=== PATIENT | female | born 1990 | race Caucasian/White ===

== ENCOUNTER 2017-06-27 22:48 | Emergency (ER) | payer MEDICAID ==
[~2017-06-27] VITALS: Ht 160 cm; Wt 111.0 kg
[2017-06-27 22:52] VITALS: BP 132/68; PULSE 92; RESP 12; TEMP 99.5; O2SAT 97
[2017-06-27] MEDS ORDERED: BACT800T5 PO (23:27)
[2017-06-27] MEDS ORDERED: CEPH-460 PO (23:27)
[2017-06-27] MEDS ORDERED: CEPHALEXIN MONOHYDRATE 500 MG CAP PO ONE (23:30)
[2017-06-27] MEDS ORDERED: SULFAMETHOXAZOLE-TRIMETHOPRIM DS 800-160 MG TAB PO ONE (23:30)
--- NOTE | 2017-06-27 23:47 | PD ---
HPI Chief Complaint: Skin Problem Time Seen by Provider: 22:15 Travel History International Travel<30 days: No Contact w/Intl Traveler<30days: No Traveled to known affect area: No History of Present Illness HPI 27-year-old female presents for evaluation of an area of tenderness and redness on the upper back. She first noticed it 4 days ago. She reports that he came to a "head" and she popped it but she has continues to have some redness and tenderness to the skin. Denies any fevers or chills. She has no other complaints at this time. PFSH Past Medical History Diminished Hearing: No ?: Not : 3 Para: 1 Miscarriage: 1 : 1 Dilation and Curettage (D&C): Yes (03/18/14) Social History Alcohol Use: No Tobacco Use: No Substance Use: No Allergies-Medications (Allergen,Severity, Reaction): Coded Allergies: No Known Allergies (Unverified , 06/27/17) Reported Meds & Prescriptions Reported Meds & Active Scripts Active Keflex (Cephalexin) 500 Mg Cap 500 Mg PO Q8H Bactrim DS (Sulfamethoxazole-Trimethoprim) 800-160 Mg Tab 1 Tab PO BID Review of Systems Except as stated in HPI: all other systems reviewed are Neg Physical Exam Narrative GENERAL: Well-developed well-nourished female in no acute distress SKIN: Warm and dry. There is a area of superficial cutaneous erythema on the posterior upper back. There appears to be in underlying sebaceous cyst however this is not fluctuant or pointing. HEAD: Atraumatic. Normocephalic. EYES: Pupils equal and round. No scleral icterus. No injection or drainage. ENT: No nasal bleeding or discharge. Mucous membranes pink and moist. NECK: Trachea midline. No JVD. CARDIOVASCULAR: Regular rate and rhythm. No murmur appreciated. RESPIRATORY: No accessory muscle use. Clear to auscultation. Breath sounds equal bilaterally. Data Data Last Documented VS Vital Signs Date Time Temp Pulse Resp B/P Pulse Ox O2 Delivery O2 Flow Rate FiO2 06/27/17 22:52 99.5 92 12 132/68 97 Room Air Orders Sulfamet-Trimeth Ds 800-160 Mg (Bactrim (06/27/17 23:30) Cephalexin (Keflex) (06/27/17 23:30) MDM Medical Decision Making Medical Screen Exam Complete: Yes Emergency Medical Condition: Yes Medical Record Reviewed: Yes Differential Diagnosis Cellulitis, abscess, infected cyst Narrative Course The patient appears to have some cellulitis to the upper back as well as an underlying cystic lesion however this is not fluctuant or pointing. At this point in time the plan will be to discharge the patient on Bactrim and Keflex. Recommended outpatient follow-up with a chair mechanic for definitive cyst removal. Stable for discharge. Diagnosis Primary Impression: Cellulitis Qualified Code: L03.312 - Cellulitis of back except buttock Additional Impression: Sebaceous cyst Referrals: Clinical Academic Allergist Additional Instructions: Medication as prescribed. Follow-up with a chair mechanic. Return for any emergent medical conditions. Med/Other Pt SpecificInfo: Prescription(s) given Scripts Cephalexin (Keflex)500 Mg Cur197 Mg PO Q8H #30 CAP Ref 0 Prov:Bipin Shaffer MD 06/27/17 Sulfamethoxazole-Trimethoprim (Bactrim DS)800-160 Mg Tab1 Tab PO BID #20 TAB Ref 0 Prov:Bipin Shaffer MD 06/27/17 Disposition: 01 DISCHARGE HOME Condition: Stable Laron Marie Jun 27, 2017 23:47
[2017-06-28] MEDS ORDERED: HYDR-3533 PO (15:32)
== END 2017-06-28 00:25 | disposition home or self-care (01) ==
LOC: NEPD 22:48
DX: L03.312 Cellulitis of back [any part except buttock and flank] (principal); L72.3 Sebaceous cyst
CPT/HCPCS: 99284

== ENCOUNTER 2017-06-28 13:22 | Emergency (ER) | payer MEDICAID ==
[~2017-06-28 13:22] MED LIST: BACT800T5 PO; CEPH-460 PO
[2017-06-28 13:23] VITALS: BP 145/83; PULSE 100; RESP 18; TEMP 98.2; O2SAT 99
--- NOTE | 2017-06-28 13:41 | PD ---
Physical Exam Date Seen by Provider: Jun 28, 2017 Time Seen by Provider: 13:38 Data Data Last Documented VS Vital Signs Date Time Temp Pulse Resp B/P Pulse Ox O2 Delivery O2 Flow Rate FiO2 06/28/17 13:23 98.2 100 18 145/83 99 MDM Supervised Visit with JES: No Narrative Course 27 YO F with complaint of pain on the left shoulder. Seen in the ED yesterday, diagnosed with abscess. Compliant with antibiotics. No treatment attempted at home. Vitals reviewed. Patient seen in triage, awaiting bed placement. Stephanie Keith Jun 28, 2017 13:41
[2017-06-28] MEDS ORDERED: oxyCODONE/ACETAMINOPHEN 5 MG/325 MG TAB PO ONE (14:30)
[2017-06-28] MEDS ORDERED: LIDOCAINE HCL 1% PF 30 ML VIAL SQ ONE (15:00)
[2017-06-28] MEDS ORDERED: HYDR-3533 PO (15:32)
--- NOTE | 2017-06-28 15:33 | PD ---
HPI Chief Complaint: Pain: Acute or Chronic Time Seen by Provider: 14:05 Travel History International Travel<30 days: No Contact w/Intl Traveler<30days: No Traveled to known affect area: No History of Present Illness HPI This is a 27-year-old female who presents to the emergency department with pain and swelling in her mid upper back, constant, severe. She says it started as a pustule and she popped it and she had some pus come out. She was seen in the emergency department yesterday and they didn't appreciate any fluctuant abscess to the started her on Bactrim and Keflex. She's been putting warm compresses on it but at this point it hurts her to move her shoulders, she has severe pain and she can't control it at home. She has had some chills. PFSH Past Medical History Diminished Hearing: No : 3 Para: 1 Miscarriage: 1 : 1 Dilation and Curettage (D&C): Yes (03/18/14) Social History Alcohol Use: No Tobacco Use: No Substance Use: No Allergies-Medications (Allergen,Severity, Reaction): Coded Allergies: No Known Allergies (Unverified , 06/27/17) Reported Meds & Prescriptions Reported Meds & Active Scripts Active Lortab (Hydrocodone-Acetaminophen) 5-325 Mg Tab 1 Tab PO Q6H PRN Keflex (Cephalexin) 500 Mg Cap 500 Mg PO Q8H Bactrim DS (Sulfamethoxazole-Trimethoprim) 800-160 Mg Tab 1 Tab PO BID Review of Systems Except as stated in HPI: all other systems reviewed are Neg Physical Exam Narrative GENERAL:Well appearing, no acute distress SKIN: 4 cm area of induration involving the upper thoracic area, tense, warm and erythematous. HEAD: Atraumatic. Normocephalic. EYES: Pupils equal and round. No injection or drainage. ENT: Moist mucous membranes NECK: Trachea midline. CARDIOVASCULAR: Regular rate and rhythm. No murmur appreciated. RESPIRATORY: Clear to auscultation. Breath sounds equal bilaterally. GASTROINTESTINAL: Abdomen soft, non-tender, nondistended. MUSCULOSKELETAL: No obvious deformities. NEUROLOGICAL: Awake and alert. No obvious cranial nerve deficits. Moving all extremities. Data Data Last Documented VS Vital Signs Date Time Temp Pulse Resp B/P Pulse Ox O2 Delivery O2 Flow Rate FiO2 06/28/17 13:23 98.2 100 18 145/83 99 Orders Ed Poc Ultrasound (06/28/17 ) Oxycodone-Acetamin 5-325 Mg (Percocet (06/28/17 14:30) Lidocaine Pf 1% Inj (Xylocaine-Mpf 1% In (06/28/17 15:00) MDM Medical Decision Making Medical Screen Exam Complete: Yes Emergency Medical Condition: Yes Interpretation(s) Afebrile, no tachycardia Differential Diagnosis Abscess, cellulitis, sepsis Narrative Course This is a 27-year-old female who presents to the emergency department with swelling and pain in her upper back. She has evidence of a deep abscess there which may be an infected cyst. I performed an incision and drainage. The wound was packed. I instructed her to return to the emergency Department in 2 days for recheck and she was advised to continue her antibiotics. I anticipate when she returned she may need continued drainage as there is a lot of induration associated with the abscess. I did do a fingerstick glucose which was 103 and normal just given the extent of the abscess and concern for possible underlying diabetes. Procedures Procedure Narrative Incision and drainage: 5 cc of 1% lidocaine were injected in the upper thoracic back. An 11 blade scalpel was used to incise the area. About 10 cc of green purulent drainage were expressed. A wound culture was collected. The area was packed with quarter inch iodoform gauze. Patient tolerated the procedure well. Diagnosis Primary Impression: Abscess Patient Instructions: General Instructions Additional Instructions: If you develop fever, increasing redness, warmth, or spreading of your infection , or severe pain return to the emergency department immediately as you may require antibiotics through your IV. Complete your course of antibiotics as prescribed. Return to the emergency department in 2 days for removal of your packing and a recheck Med/Other Pt SpecificInfo: Prescription(s) given Scripts Hydrocodone-Acetaminophen (Lortab)5-325 Mg Tab1 Tab PO Q6H PRN (PAIN) #6 TAB Ref 0 Prov:Brooklyn Briseno MD 06/28/17 Disposition: 01 DISCHARGE HOME Condition: Stable Brooklyn Briseno MD Jun 28, 2017 15:33
== END 2017-06-28 15:49 | disposition home or self-care (01) ==
LOC: NEPD 13:22
DX: L02.212 Cutaneous abscess of back [any part, except buttock and flank] (principal); A49.01 Methicillin susceptible Staphylococcus aureus infection, unspecified site; Z79.899 Other long term (current) drug therapy
CPT/HCPCS: 10060; 86403; 87070; 87186; 87205

== ENCOUNTER 2017-06-30 13:17 | Emergency (ER) | payer MEDICAID ==
[~2017-06-30] VITALS: Ht 160 cm; Wt 104.5 kg
[~2017-06-30 13:17] MED LIST changes: +HYDR-3533 PO
[2017-06-30 13:19] VITALS: BP 109/70; PULSE 90; TEMP 98.7; O2SAT 98
--- NOTE | 2017-06-30 13:26 | PD ---
Physical Exam Date Seen by Provider: Jun 30, 2017 Time Seen by Provider: 13:24 Narrative 27 y/o female with follow-up recent abscess I+D 2 days ago. Here for Wound Check and Packing removal. Vital signs reviewed. Patient stable. Awaiting Bed placement. Data Data Last Documented VS Vital Signs Date Time Temp Pulse Resp B/P Pulse Ox O2 Delivery O2 Flow Rate FiO2 06/30/17 13:19 98.7 90 109/70 98 MDM Medical Record Reviewed: Yes Supervised Visit with JES: Yes Condition: Stable Carlin Meyers Jun 30, 2017 13:26
--- NOTE | 2017-06-30 14:04 | PD ---
HPI Chief Complaint: Wound/Suture/Staple Re-Check Time Seen by Provider: 14:03 Travel History International Travel<30 days: No Contact w/Intl Traveler<30days: No Traveled to known affect area: No History of Present Illness HPI 27-year-old female presents to emergency department for abscess recheck. It did have the packing in place but it came out on its own. She has been taking antibiotics as prescribed. Denies fever, vomiting. Reports feeling chills. Symptoms are mild in severity. Has no other medical complaints. No known allergies. No other modifying factors or associated signs and symptoms. PFSH Past Medical History Medical History: Denies Significant Hx Diminished Hearing: No Tetanus Vaccination: > 5 Years ?: Not LMP: 05/2017 : 3 Para: 1 Miscarriage: 1 : 1 Dilation and Curettage (D&C): Yes (03/18/14) Past Surgical History Surgical History: No Previous Surgery Social History Alcohol Use: No Tobacco Use: No Substance Use: No Allergies-Medications (Allergen,Severity, Reaction): Coded Allergies: No Known Allergies (Unverified , 06/30/17) Reported Meds & Prescriptions Reported Meds & Active Scripts Active Lortab (Hydrocodone-Acetaminophen) 5-325 Mg Tab 1 Tab PO Q6H PRN Keflex (Cephalexin) 500 Mg Cap 500 Mg PO Q8H Bactrim DS (Sulfamethoxazole-Trimethoprim) 800-160 Mg Tab 1 Tab PO BID Review of Systems Except as stated in HPI: all other systems reviewed are Neg Physical Exam Narrative GENERAL: Well-nourished, well-developed female patient, in no acute distress; afebrile, nontoxic-appearing SKIN: There is an indurated area to the mid back which measures about 2.5 cm in diameter; abscesses post-incision and draining purulent drainage; no iodoform packing present. There is a zone of inflammation around it but no lymphangitis. HEAD: Atraumatic. Normocephalic. EYES: Pupils equal and round. No scleral icterus. No injection or drainage. ENT: Mucosa pink and moist. Airway patent. NECK: Trachea midline. CARDIOVASCULAR: Regular rate. RESPIRATORY: No accessory muscle use. GASTROINTESTINAL: Obese. MUSCULOSKELETAL: No obvious deformities. No clubbing. No cyanosis. No edema. NEUROLOGICAL: Awake and alert. Oriented 3. No obvious cranial nerve deficits. Motor grossly within normal limits. Normal speech. PSYCHIATRIC: Appropriate mood and affect; insight and judgment normal. Data Data Last Documented VS Vital Signs Date Time Temp Pulse Resp B/P Pulse Ox O2 Delivery O2 Flow Rate FiO2 06/30/17 13:19 98.7 90 109/70 98 [facility] Medical Decision Making Medical Screen Exam Complete: Yes Emergency Medical Condition: Yes Medical Record Reviewed: Yes Differential Diagnosis Abscess recheck, abscess packing removal, medical clearance Narrative Course 27-year-old female presents for abscess recheck and packing removal, but the packing has already came out on its own. Patient is afebrile and nontoxic- appearing. Denies fever, vomiting. Is taking antibiotics as prescribed. Instructed patient to take antiemetics until they are gone. Instructed patient to follow up with primary care provider. Patient verbalizes understanding and agreement with treatment plan. Patient is medically cleared and stable for discharge. Discussed reasons to return to the emergency department. Patient agrees with treatment plan. The patients vital signs are stable and the patient is stable for outpatient follow-up and treatment. Patient discharged home, stable and in no acute distress. Diagnosis Primary Impression: Abscess re-check Referrals: Primary Care Physician Patient Instructions: Abscess (ED), Abscess Follow-up (ED), General Instructions Departure Forms: Tests/Procedures, Work Release Enter return to work date: Jul 01, 2017 Additional Instructions: Complete full course of antibiotics Warm compresses to the affected area Keep area clean and dry Ibuprofen or Tylenol as directed and as needed for pain and inflammation Follow-up with primary care provider Return to emergency department immediately with worsening of symptoms Med/Other Pt SpecificInfo: No Change to Meds, No Meds Exist/No RX given Disposition: 01 DISCHARGE HOME Condition: Stable Halle Haskins Jun 30, 2017 14:04
== END 2017-06-30 14:15 | disposition home or self-care (01) ==
LOC: NEPK 13:17
DX: Z48.01 Encounter for change or removal of surgical wound dressing (principal)
CPT/HCPCS: 99281

== ENCOUNTER 2017-08-28 15:14 | Emergency (ER) | payer OTHER, MEDICAID ==
[~2017-08-28] VITALS: Ht 160 cm; Wt 100.0 kg
[2017-08-28 15:19] VITALS: BP 136/87; PULSE 84; RESP 20; TEMP 97.8; O2SAT 98
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
[2017-08-28] MEDS ORDERED: NAPR500T PO (16:22)
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
== END 2017-08-28 16:59 | disposition home or self-care (01) ==
LOC: NEPA 15:14
DX: S83.92XA Sprain of unspecified site of left knee, initial encounter (principal); V43.52XA Car driver injured in collision with other type car in traffic accident, initial encounter
CPT/HCPCS: 73564; 99283